=== PATIENT | female | born 1950 | race Caucasian/White ===

== ENCOUNTER 2018-03-11 05:57 | Inpatient (IN) | payer OTHER ==
[2018-02-23 17:56] VITALS: BMI 21.1
[2018-03-11] MEDS ORDERED: EPINEPHrine/PF 1 MG/1 ML (1:1,000) AMPULE ONE (06:52)
[2018-03-11] MEDS ORDERED: DEXAMETHASONE SOD PHOSPHATE/PF 10 MG/ML SDV ONE (06:52)
[2018-03-11] MEDS ORDERED: MIDAZOLAM HCL 2 MG/2 ML SINGLE DOSE VIAL ONE (06:52)
[2018-03-11] MEDS ORDERED: LIDOCAINE 1% P/F 10 MG/ML VIAL ONE (06:52)
[2018-03-11] MEDS ORDERED: BUPIVACAINE HCL/PF (5 MG/ML) 30 ML VIAL IJ ONE (06:52)
[2018-03-11] MEDS ORDERED: VANCOMYCIN 1,000 MG in DEXTROSE 5%-WATER - 250 ML IVPB ONE ×2 (07:14→20:00)
[2018-03-11] MEDS ORDERED: CELECOXIB 200 MG CAPSULE PO ONE (07:14)
[2018-03-11] MEDS ORDERED: CLINDAMYCIN 900 MG PREMIX IVPB 900 MG/50 ML BAG IVPB ONE (07:19)
[2018-03-11] MEDS ORDERED: VANCOMYCIN 1,000 MG VIAL (RESTRICTED TO ID ONLY) ONE (07:39)
[2018-03-11] MEDS ORDERED: SUCCINYLCHOLINE CHLORIDE 200 MG/10 ML VIAL ONE (08:29)
[2018-03-11] MEDS ORDERED: PROPOFOL 20 ML ONE ×3 (08:29→10:11)
[2018-03-11] MEDS ORDERED: ONDANSETRON 4 MG/2 ML VIAL ONE (08:48)
[2018-03-11] MEDS ORDERED: ceFAZolin SODIUM 1 GM VIAL ONE ×2 (08:48→11:27)
[2018-03-11] MEDS ORDERED: DEXAMETHASONE SOD PHOSPHATE 4 MG/1 ML VIAL ONE (08:48)
[2018-03-11] MEDS ORDERED: TRANEXAMIC ACID 1000 MG/10 ML VIAL ONE ×2 (08:48→12:26)
[2018-03-11] MEDS ORDERED: BENZOIN/ALOE VERA/STORAX/TOLU 58 ML BOTTLE ONE (12:13)
--- NOTE | 2018-03-11 13:00 | OP ---
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 Taoist Modular Stem - 17mm distal stem; 23mm body. Tritanium Cup - 64mm, multi-hole. Poly - 32mm, neutral. Head - Ceramic/Biolox 32mm, standard Post-Operative Diagnosis: Same as Pre-op Surgeon: Matt Vazquez [employer] Supervisor: Vicente Vazquez Anesthesiologist/BOOK JACKET COVER MACHINE OPERATOR: Sarah Martin Anesthesia: Spinal Specimens Removed: Left total hip replacement. Soft tissue Estimated Blood Loss (mls): 1,800 Drains & Tubes with Location: 1 x deep HemoVac Blood Volume Replaced (mls): 700 (2U PRBC) Fluid Volume Replaced (mls): 3,000 (Crystalloid) Operative Report Dictated: Yes
[2018-03-11] MEDS ORDERED: MAGNESIUM HYDROX 2400MG/30ML ORAL SUSPENSION 30 ML CUP PO PRN (13:02)
[2018-03-11] MEDS ORDERED: ONDANSETRON 4 MG/2 ML VIAL IVPUSH PRN (13:02)
[2018-03-11] MEDS ORDERED: MAG HYDROX/AL HYDROX/SIMETH 30 ML UNIT-DOSE CUP PO PRN (13:02)
--- NOTE | 2018-03-11 13:02 | PN ---
Progress Note (short form) - Note Progress Note: 67F s/p revision LEFT total hip replacement POD #0. -Pain control. -DVT PPx: -Mechanical: JORDY's, SCD's. -Chemical: ASA 81mg PO BID x 6 weeks. -Incentive spirometry. -PT/OT/Rehab, OOB. -WBAT LLE. -Hip abduction pillow; will obtain hip abduction brace. -f/u drain output. -d/c stephens catheter when ambulating. -f/u AM labs. -Mary Ann-op antibiotics: Ancef, Vancomycin. -Care per medical hospitalist team. -Will follow. -Discharge planning. Matt Vazquez MD (Orthopaedic Surgery).
[2018-03-11] MEDS ORDERED: oxyCODONE HCL 5 MG TABLET PO PRN (13:09)
[2018-03-11] MEDS ORDERED: LACTATED RINGERS SOLUTION 1,000 ML IV SCH (13:15)
[2018-03-11] MEDS ORDERED: ACETAMINOPHEN 325 MG TABLET (FP) PO SCH (14:00)
--- NOTE | 2018-03-11 14:19 | CONSULT ---
Consultation: REQUESTING PROVIDER: Dr Vazquez CONSULT REQUEST: We have been asked to medically evaluate this patient for medical management . HISTORY OF PRESENT ILLNESS: Patient is a 67 y/o female with a past medical history of congential bilateral hip dysplasia. patient is s/p billateral hip replacement 20 years ago. Patient is s/p left hip replacement with revision, POD #0, Dr Vazquez, spinal anesthesia. ESBL 2L, patient received 2units of PRBC intraop and 1 unit of PRBC in PACU. REVIEW OF SYSTEMS: CONSTITUTIONAL: Absent: fever, chills, diaphoresis, generalized weakness, malaise, loss of appetite, weight change HEENT: Absent: rhinorrhea, nasal congestion, throat pain, throat swelling, difficulty swallowing, mouth swelling, ear pain, eye pain, visual changes CARDIOVASCULAR: Absent: chest pain, syncope, palpitations, irregular heart rate, lightheadedness , peripheral edema RESPIRATORY: Absent: cough, shortness of breath, dyspnea with exertion, orthopnea, wheezing, stridor, hemoptysis GASTROINTESTINAL: Absent: abdominal pain, abdominal distension, nausea, vomiting, diarrhea, constipation, melena, hematochezia GENITOURINARY: Absent: dysuria, frequency, urgency, hesitancy, hematuria, flank pain, genital pain MUSCULOSKELETAL: Present: left hip pain Absent: myalgia, arthralgia, joint swelling, back pain, neck pain SKIN: Absent: rash, itching, pallor HEMATOLOGIC/IMMUNOLOGIC: Absent: easy bleeding, easy bruising, lymphadenopathy, frequent infections ENDOCRINE: Absent: unexplained weight gain, unexplained weight loss, heat intolerance, cold intolerance NEUROLOGIC: Absent: headache, focal weakness or paresthesias, dizziness, unsteady gait, seizure, mental status changes, bladder or bowel incontinence PSYCHIATRIC: Absent: anxiety, depression, suicidal or homicidal ideation, hallucinations. PHYSICAL EXAMINATION Vital Signs - 24 hr 03/11/18 03/11/18 06:11 13:00 Temperature 98.1 F 99 F Pulse Rate 65 78 Respiratory 18 16 Rate Blood Pressure 112/62 75/86 O2 Sat by Pulse 99 Oximetry (%) GENERAL: Awake, alert, and fully oriented, in no acute distress. HEAD: Normal with no signs of trauma. EYES: Pupils equal, round and reactive to light, extraocular movements intact, sclera anicteric, conjunctiva clear. No lid lag. EARS, NOSE, THROAT: Ears normal, nares patent, oropharynx clear without exudates. Moist mucous membranes. NECK: Normal range of motion, supple without lymphadenopathy, JVD, or masses. LUNGS: Breath sounds equal, clear to auscultation bilaterally. No wheezes, and no crackles. No accessory muscle use. HEART: Regular rate and rhythm, normal S1 and S2 without murmur, rub or gallop. ABDOMEN: Soft, nontender, not distended, normoactive bowel sounds, no guarding, no rebound, no masses. No hepatomegaly or splenomegaly. MUSCULOSKELETAL: Normal range of motion at all joints. No bony deformities or tenderness. No CVA tenderness. UPPER EXTREMITIES: 2+ pulses, warm, well-perfused. No cyanosis. No clubbing. Cap refill <2 seconds. No peripheral edema. LEFT LOWER EXTREMITY: hemovac drain sang drainage, less than 3 second cappila LOWER EXTREMITIES: 2+ pulses, warm, well-perfused. No calf tenderness. No peripheral edema. NEUROLOGICAL: Cranial nerves II-XII intact. Normal speech. Normal gait. PSYCHIATRIC: Cooperative. Good eye contact. Appropriate mood and affect. SKIN: Warm, dry, normal turgor, no rashes or lesions noted. Laboratory Results - last 24 hr 03/11/18 03/11/18 08:27 08:28 Blood Type O NEGATIVE Cancelled Antibody Screen Negative Crossmatch IS Only See Detail Active Medications Generic Name Dose Route Start Last Admin Trade Name Freq PRN Reason Stop Dose Admin Acetaminophen 650 mg 03/11/18 13:15 Tylenol - PO 03/14/18 13:14 Q6H FEDE Al Hydroxide/Mg Hydroxide 30 ml 03/11/18 13:02 Mylanta Oral Suspension - PO Q4H PRN DYSPEPSIA Aspirin 81 mg 03/11/18 22:00 Asa - PO BID FEDE Fentanyl 25 mcg 03/11/18 13:08 Sublimaze Injection - IVPUSH [id number] PRN PAIN-PACU ORDER X 4 DOSES ONLY Cefazolin Sodium 50 mls @ 100 mls/hr 03/11/18 18:00 Ancef 1 Gm Premixed Ivpb - IVPB 03/12/18 02:29 Q8H-IV FEDE Lactated Ringer's 1,000 mls @ 100 mls/hr 03/11/18 13:15 Lactated Ringers Solution IV 03/12/18 06:00 ASDIR FEDE Vancomycin HCl 1,000 mg/ 250 mls @ 166.667 mls/hr 03/11/18 20:00 Dextrose IVPB 03/11/18 21:29 ONCE ONE Protocol Magnesium Hydroxide 30 ml 03/11/18 13:02 Milk Of Magnesia - PO PRN PRN CONSTIPATION Ondansetron HCl 4 mg 03/11/18 13:02 Zofran Injection IVPUSH Q6H PRN NAUSEA Oxycodone HCl 5 mg 03/11/18 13:09 Roxicodone - PO Q3H PRN PAIN LEVEL 1-5 Oxycodone HCl 10 mg 03/11/18 13:09 Roxicodone - PO Q3H PRN PAIN LEVEL 6-10 Oxycodone HCl 10 mg 03/11/18 22:00 Oxycontin - PO 03/14/18 13:10 BID [facility] Pantoprazole Sodium 40 mg 03/12/18 10:00 Protonix - PO DAILY [facility] Senna/Docusate Sodium 1 tablet 03/11/18 22:00 Pericolace - PO BID FEDE ASSESSMENT/PLAN: 1) MS s/p left hip revision w/hip replacement - ESBL 2 liters, 3 units of PRBC (2intra op & 1 PACU), b/p labile, 81/53, pt reports 90's b/p baseline, pt also reports receiving 6 units of PRBC during her first hip replacement, pending INR PT/PTT, advised 4th unit of PRBC and FFP - caution with narcotic pain medication with labile B/P - PT as per ortho f/e/n - regular diet ppx - asa as per ortho - scd/jun Dispo: We will continue to follow the patient. Thank you for this consultative opportunity.
--- NOTE | 2018-03-11 14:24 | OP ---
DATE OF OPERATION: 03/11/2018 SURGEON: Matt Vazquez MD LOCKSTITCH WAISTLINE JOINER: Vicente Vazquez MD; TRINIDAD Guido PREOPERATIVE DIAGNOSIS: Loosening left total hip arthroplasty with extensive femoral and acetabular osteolysis. POSTOPERATIVE DIAGNOSIS: Loosening left total hip arthroplasty with extensive femoral and acetabular osteolysis. OPERATION PERFORMED: 1. Extended trochanteric osteotomy. 2. Explant of acetabular and femoral components. 3. Revision, left total hip arthroplasty. 4. Complex wound closure, 40 cm. ANESTHESIA: Adductor block and spinal anesthesia. ANTIBIOTICS GIVEN: Kefzol 2 g, vancomycin 1 g given preoperatively, Kefzol 1 g given at the time of seating the femoral component, and Kefzol 1 g given at the end of the procedure. DESCRIPTION: The patient was correctly identified, brought in the operating room. The left lower extremity was prepped, free draped in the routine manner with Betadine scrub solution, wiped off with alcohol, and DuraPrep applied. Left lower extremity free drape performed. Timeout was called. Imaging was available for intraoperative evaluation. In the supine position, the original old incision was opened and extended distally. The fascia was opened. Charnley retractors were placed in a subfascial plane. The hip abductor mechanism was clearly noted. Extensive caseous-type material noted laterally, eroded through the muscle into Lanza- Pabon window on through the vastus lateralis at the level of the trochanteric ridge, significant osteolysis. Once this had been cleared away, it was noted that the entire proximal anterior and distal femur had disappeared. We were looking at poor skirting from the original implant. The implant femoral component appeared to be solidly ingrown. The approach was that of an extended trochanteric osteotomy, which was as follows: Gigli saw was placed around the superior aspect of the femoral component and then cut into the plane between the shoulder of the implant and the trochanter. This was then stopped with the Gigli saw at the level of the trochanteric ridge. The vastus lateralis was dissected off the proximal femur and 2 inches of lateral femoral shaft exposed. An oscillating saw extended the cuts that had been performed from above with the Gigli saw 2 inches below the trochanteric ridge, one just alongside linea aspera and the other side just at the apex of the femur itself, and then these were together with a transverse cut as well. Using osteotome, this bone was teased off the actual bone bed appropriately, and teased off the implant. Extensive caseous-looking material was noted. Tissues were sent for culture and sensitivity as well as histopathology as well as frozen section. Frozen section was reported to have no features of any polymorph invasion of the tissues at all in any of the specimens looked at. We proceeded with the entire operation as follows. The femoral component was removed by passing another Gigli saw around the calcar region of the stem and cutting anterior and posterior aspects to break the tobias between the bone bed and the femur itself. The extraction tool was utilized and brought about an uncomplicated removal of the femoral component. At that point, the hip abductor mechanism was lifted out of harm's way with the extended trochanteric osteotomy, and 2 Charnley pins placed in the superolateral acetabulum to hold the muscle and the trochanter out of harm's way there. An anterior retractor, inferior retractor were utilized, the inferior retractor into the actual obturator foramen. The peripheral margin of the cup was free of all osteofibrous material. Extensive caseous-looking material was noted. This was freed right around the cup, and the cup was extricated without any problem. Dense caseous-looking material was noted in the cup itself. Reaming of the femur was to a size 63. The bone bed was carefully prepared. Two large holes in the bone, making this a contained defect , were then packed with cancellous bone. These were demineralized bone sponges soaked in blood, packed into this area in 2 separate areas. The acetabular component was then seated with solid press-fit being utilized. This was a Tritanium multi- holed cup size 64. The screws measured size 20 and size 30, which augmented the press -fit fixation, with solid fixation being achieved. A 32-mm polyethylene liner was inserted for the cup articulation. Once this had been performed, the femur was abducted and held firmly with the tibia vertical. The bone bed was washed, cleared of soft tissues. Reaming was started to size 17, and a size 17 yazdanism modular stem inserted. This was a size 17 x 195 stem. Onto this, the trial body was trialed. The myofascial tension was achieved by placing a size 23 body with a + 0 offset and a trial head +0 was applied to the trunnion, and this brought about equal leg length on the table. The definitive body was then placed and definitive ceramic 32, +0 head, seated onto the component and the entire hip reduced. Full range of movement found on the table with no instability. The reattachment of the trochanter was as follows: Two Dall-Miles cables were passed around the extended trochanteric osteotomy lineup of the femur and fixed solid into position with the appropriate torque and box compressing device. Another cable was placed, looped around the greater trochanter. This was not tight because of fear of breaking the bone bed but it would help as a check rein against proximal migration. Again, range of movement was tested and found to be completely solid and uncomplicated on the table. Closure: Hip abductor mechanism: 1 Vicryl; fascia: 1 Vicryl; muscle: 1 Vicryl; subcutaneous: 1 Vicryl; skin: 3-0 Monocryl with Steri-Strips. A 1/8-inch Hemovac drain was inserted. The leg lengths were equal, the axial alignment of the limb was perfectly aligned. No complications. Patient was awake throughout the procedure and remained conscious and fully orientated. Blood loss: Approximately 600 mL. Blood was given to her intraoperatively. Overall comment: Difficult problem but off went without any complications. MD HENRY Cook/[id number] MTDD
[2018-03-11 14:34] LABS: ACTIVATED PTT 30.9 SECONDS (24.0-38.9)
[2018-03-11 14:38] LABS: INR 1.16 (0.82-1.09)
[2018-03-11 16:28] LABS: MEAN CELL VOLUME 89.8 fl (80-96); PLATELET COUNT 142 K/MM3 (134-434)
[2018-03-11 16:34] LABS: HEMATOCRIT 39.9 % (32.4-45.2); HEMOGLOBIN 13.9 GM/dl (10.7-15.3); MCH 31.2 pg (25.7-33.7); MCHC 34.7 g/dl (32.0-36.0); MEAN PLT VOLUME 8.7 fl (7.5-11.1); RBC 4.44 M/mm3 (3.60-5.2); RDW 14.5 % (11.6-15.6); WHITE BLOOD COUNT 12.3 K/mm3 (4.0-10.8)
[2018-03-11] MEDS ORDERED: ACETAMINOPHEN 325 MG TABLET (FP) ONE (17:06)
[2018-03-11] MEDS ORDERED: ceFAZolin SODIUM 1 GM VIAL IVPB ONE (18:00)
[2018-03-11] MEDS: CEFAZOLIN 1 GM/D5W 1 GM/50 ML BAG IVPB SCH (18:05)
[2018-03-11] MEDS: ACETAMINOPHEN 325 MG TABLET (FP) PO SCH (18:06)
[2018-03-11] MEDS: oxyCODONE HCL 5 MG TABLET PO PRN ×2 (18:28→22:48)
[2018-03-11] MEDS ORDERED: HYDROmorphone HCL CARPU-JECT 2 MG/1 ML DISP.SYRIN IVPUSH PRN (19:50)
[2018-03-11] MEDS ORDERED: IBUPROFEN 800 MG/8 ML IJ IVPB ONE (20:00)
[2018-03-11] MEDS: ASPIRIN 325 MG TABLET PO SCH (21:11)
[2018-03-11] MEDS: oxyCODONE HCL 10 MG SUSTAINED ACTING TABLET PO SCH (21:11)
[2018-03-11] MEDS: SENNOSIDES/DOCUSATE COMBO (SENNA PLUS) TABLET (UD) PO SCH (21:12)
[2018-03-12] MEDS: CEFAZOLIN 1 GM/D5W 1 GM/50 ML BAG IVPB SCH (01:03)
[2018-03-12] MEDS: ACETAMINOPHEN 325 MG TABLET (FP) PO SCH ×3 (01:04→18:24)
[2018-03-12] MEDS: oxyCODONE HCL 5 MG TABLET PO PRN ×4 (01:45→21:19)
[2018-03-12 07:30] LABS: HEMATOCRIT 32.2 % (32.4-45.2); HEMOGLOBIN 10.8 GM/dl (10.7-15.3); MCH 30.3 pg (25.7-33.7); MCHC 33.5 g/dl (32.0-36.0); MEAN CELL VOLUME 90.6 fl (80-96); MEAN PLT VOLUME 8.8 fl (7.5-11.1); PLATELET COUNT 132 K/MM3 (134-434); RBC 3.55 M/mm3 (3.60-5.2)
[2018-03-12] MEDS ORDERED: HYDROmorphone HCL CARPU-JECT 2 MG/1 ML DISP.SYRIN IVPB PRN (07:41)
[2018-03-12 07:44] LABS: ANION GAP 3 (8-16); BLOOD UREA NITROGEN 11 mg/dl (7-18); CHLORIDE 107 mmol/L (98-107); CO2 29 mmol/L (22-28); CREATININE 0.6 mg/dl (0.6-1.3); GLUCOSE,RANDOM 91 mg/dl (74-106); POTASSIUM 3.8 mmol/L (3.5-5.1); SODIUM 139 mmol/L (136-145)
--- NOTE | 2018-03-12 07:54 | PN ---
Physical Exam: SUBJECTIVE: Patient seen and examined, ambulatoy throughout nursing station with physical therapist, denies any dizziness or shortness of breath, reports minimal pain to left hip OBJECTIVE:Patient is a 67 y/o female with a past medical history of congential bilateral hip dysplasia. patient is s/p billateral hip replacement 20 years ago. Patient is s/p left hip replacement with revision, POD # 1, Dr Vazquez, spinal anesthesia. ESBL 2L, patient received 4 units of PRBC. Vital Signs Period Temp Pulse Resp BP Sys/Ibrahim Pulse Ox Last 24 Hr 97.6 F-99 F 62-78 10-20 71-113/47-86 94-100 GENERAL: Awake, alert, and fully oriented, in no acute distress. HEAD: Normal with no signs of trauma. EYES: Pupils equal, round and reactive to light, extraocular movements intact, sclera anicteric, conjunctiva clear. No lid lag. EARS, NOSE, THROAT: Ears normal, nares patent, oropharynx clear without exudates. Moist mucous membranes. NECK: Normal range of motion, supple without lymphadenopathy, JVD, or masses. LUNGS: Breath sounds equal, clear to auscultation bilaterally. No wheezes, and no crackles. No accessory muscle use. HEART: Regular rate and rhythm, normal S1 and S2 without murmur, rub or gallop. ABDOMEN: Soft, nontender, not distended, normoactive bowel sounds, no guarding, no rebound, no masses. No hepatomegaly or splenomegaly. MUSCULOSKELETAL: Normal range of motion at all joints. No bony deformities or tenderness. No CVA tenderness. UPPER EXTREMITIES: 2+ pulses, warm, well-perfused. No cyanosis. No clubbing. Cap refill <2 seconds. No peripheral edema. LEFT LOWER EXTREMITY: hemovac drain sang drainage, less than 3 second cappila LOWER EXTREMITIES: 2+ pulses, warm, well-perfused. No calf tenderness. No peripheral edema. NEUROLOGICAL: Cranial nerves II-XII intact. Normal speech. Normal gait. PSYCHIATRIC: Cooperative. Good eye contact. Appropriate mood and affect. SKIN: Warm, dry, normal turgor, no rashes or lesions noted. Laboratory Results - last 24 hr 03/11/18 03/11/18 03/11/18 08:27 08:28 13:50 WBC RBC Hgb Hct MCV MCH MCHC RDW Plt Count MPV PT with INR 13.0 INR 1.16 PTT (Actin FS) 30.9 Blood Type O NEGATIVE Cancelled Antibody Screen Negative Crossmatch IS Only See Detail 03/11/18 16:00 WBC 12.3 H RBC 4.44 Hgb 13.9 Hct 39.9 MCV 89.8 MCH 31.2 MCHC 34.7 RDW 14.5 Plt Count 142 MPV 8.7 PT with INR INR PTT (Actin FS) Blood Type Antibody Screen Crossmatch IS Only CBC WBC 13.0 K/mm3 (4.0-10.8) H 03/12/18 07:11 RBC 3.55 M/mm3 (3.60-5.2) L D 03/12/18 07:11 Hgb 10.8 GM/dl (10.7-15.3) D 03/12/18 07:11 Hct 32.2 % (32.4-45.2) L D 03/12/18 07:11 MCV 90.6 fl (80-96) 03/12/18 07:11 MCH 30.3 pg (25.7-33.7) 03/12/18 07:11 MCHC 33.5 g/dl (32.0-36.0) 03/12/18 07:11 RDW 15.0 % (11.6-15.6) 03/12/18 07:11 Plt Count 132 K/MM3 (134-434) L 03/12/18 07:11 MPV 8.8 fl (7.5-11.1) 03/12/18 07:11 Active Medications Generic Name Dose Route Start Last Admin Trade Name Vic PRN Reason Stop Dose Admin Acetaminophen 650 mg 03/11/18 18:00 03/12/18 06:13 Tylenol - PO 03/14/18 17:59 650 mg Q6H FEDE Administration Al Hydroxide/Mg Hydroxide 30 ml 03/11/18 13:02 Mylanta Oral Suspension - PO Q4H PRN DYSPEPSIA Aspirin 81 mg 03/11/18 22:00 03/11/18 21:11 Asa - PO 81 mg BID FEDE Administration Fentanyl 25 mcg 03/11/18 13:08 Sublimaze Injection - IVPUSH [id number] PRN PAIN-PACU ORDER X 4 DOSES ONLY Hydromorphone HCl 0.5 mg 03/12/18 07:41 Dilaudid Injection - IVPB 03/12/18 19:49 Q4H PRN PAIN LEVEL 7 - 10 Magnesium Hydroxide 30 ml 03/11/18 13:02 Milk Of Magnesia - PO PRN PRN CONSTIPATION Ondansetron HCl 4 mg 03/11/18 13:02 Zofran Injection IVPUSH Q6H PRN NAUSEA Oxycodone HCl 5 mg 03/11/18 13:09 03/12/18 04:55 Roxicodone - PO 5 mg Q3H PRN Administration PAIN LEVEL 1-5 Oxycodone HCl 10 mg 03/11/18 13:09 03/12/18 01:45 Roxicodone - PO 10 mg Q3H PRN Administration PAIN LEVEL 6-10 Oxycodone HCl 10 mg 03/11/18 22:00 03/11/18 21:11 Oxycontin - PO 03/14/18 13:10 10 mg BID FEDE Administration Pantoprazole Sodium 40 mg 03/12/18 10:00 Protonix - PO DAILY FEDE Senna/Docusate Sodium 1 tablet 03/11/18 22:00 03/11/18 21:12 Pericolace - PO 1 tablet BID FEDE Administration ASSESSMENT/PLAN: 1) MS s/p left hip revision w/hip replacement, pod #1 - 4units of prbc, hgb 10.8 stable - b/p at baseline - prn pain medication - PT as per ortho f/e/n - regular diet ppx - asa as per ortho - scd/jun Dispo: We will continue to follow the patient. Thank you for this consultative opportunity.
--- NOTE | 2018-03-12 09:39 | PN ---
Progress Note (short form) - Note Progress Note: 67F POD1 s/p L revision THR under spinal anesthetic and peripheral nerve blocks. Pt states that pain is well contolled, reports no anesthetic complications. After 4 units pRbcs and 4L crystalloid, pt is not orthostatic, and BP is close to/at baseline. Motor and sensory function intact in bilateral lower extremities. Continue current regimen.
[2018-03-12] MEDS: PANTOPRAZOLE 40 MG TABLET (FP) PO SCH (10:32)
[2018-03-12] MEDS: oxyCODONE HCL 10 MG SUSTAINED ACTING TABLET PO SCH ×2 (10:32→21:20)
[2018-03-12] MEDS: SENNOSIDES/DOCUSATE COMBO (SENNA PLUS) TABLET (UD) PO SCH ×2 (10:32→21:20)
[2018-03-12] MEDS: ASPIRIN 325 MG TABLET PO SCH ×2 (10:33→21:21)
[2018-03-12] MEDS ORDERED: ASPIRIN 81 MG CHEWABLE TABLETS ONE (21:03)
[2018-03-12] MEDS ORDERED: diazePAM 5 MG TABLET PO ONE (22:00)
[2018-03-13] MEDS: ACETAMINOPHEN 325 MG TABLET (FP) PO SCH ×4 (05:55→12:24)
[2018-03-13] MEDS: oxyCODONE HCL 5 MG TABLET PO PRN ×2 (06:13→10:04)
[2018-03-13 06:29] VITALS: PULSE 94
[2018-03-13 08:13] LABS: HEMATOCRIT 30.3 % (32.4-45.2); HEMOGLOBIN 10.3 GM/dl (10.7-15.3); MCH 30.4 pg (25.7-33.7); MCHC 34.1 g/dl (32.0-36.0); MEAN CELL VOLUME 89.3 fl (80-96); MEAN PLT VOLUME 9.3 fl (7.5-11.1); PLATELET COUNT 140 K/MM3 (134-434); RBC 3.39 M/mm3 (3.60-5.2); RDW 15.2 % (11.6-15.6); WHITE BLOOD COUNT 10.5 K/mm3 (4.0-10.8)
--- NOTE | 2018-03-13 09:32 | DS ---
Physical Exam: SUBJECTIVE: Patient seen and examined, patient ambulated throughout nursing station with physical therapist, denies any chest pain, dizziness or shortness of breath, patient denies any paresthesia to the left lower extremity. OBJECTIVE: Patient is a 67 y/o female with a past medical history of congential bilateral hip dysplasia. patient is s/p billateral hip replacement 20 years ago. Patient is s/p left hip replacement with revision, POD #2, Dr Vazquez. Vital Signs Temperature 99.2 F 03/13/18 06:00 Pulse Rate 94 H 03/13/18 06:00 Respiratory Rate 17 03/13/18 06:00 Blood Pressure 100/49 03/13/18 06:00 O2 Sat by Pulse Oximetry (%) 95 03/13/18 06:27 Vital Signs - 24 hr 03/12/18 03/12/18 03/12/18 14:00 20:06 22:00 Temperature 98.2 F 98 F Pulse Rate 69 70 Respiratory 18 18 18 Rate Blood Pressure 100/48 118/54 O2 Sat by Pulse 97 97 Oximetry (%) 03/13/18 03/13/18 03/13/18 06:00 06:27 09:00 Temperature 99.2 F Pulse Rate 94 H Respiratory 17 17 Rate Blood Pressure 100/49 O2 Sat by Pulse 95 95 Oximetry (%) 03/13/18 10:00 Temperature 99.2 F Pulse Rate 94 H Respiratory 17 Rate Blood Pressure 100/49 O2 Sat by Pulse Oximetry (%) PHYSICAL EXAM GENERAL: The patient is awake, alert, and fully oriented, in no acute distress. HEAD: Normal with no signs of trauma. EYES: PERRL, extraocular movements intact, sclera anicteric, conjunctiva clear. ENT: Ears normal, nares patent, oropharynx clear without exudates, moist mucous membranes. NECK: Trachea midline, full range of motion, supple. LUNGS: Breath sounds equal, clear to auscultation bilaterally, no wheezes, no crackles, no accessory muscle use. HEART: Regular rate and rhythm, S1, S2 without murmur, rub or gallop. ABDOMEN: Soft, nontender, nondistended, normoactive bowel sounds, no guarding, no rebound, no hepatosplenomegaly, no masses. EXTREMITIES: 2+ pulses, warm, well-perfused, no edema. LEFT LOWER EXTREMITY: surgical dressing intact, hemovac dressing removed intact , no induration noted, minimal drainage noted, less than 3 second capillary refill, +3 pedal pulse NEUROLOGICAL: Cranial nerves II through XII grossly intact. Normal speech, gait not observed. PSYCH: Normal mood, normal affect. SKIN: Warm, dry, normal turgor, no rashes or lesions noted. LABS CBC,CMP WBC 10.5 K/mm3 (4.0-10.8) 03/13/18 07:15 RBC 3.39 M/mm3 (3.60-5.2) L 03/13/18 07:15 Hgb 10.3 GM/dl (10.7-15.3) L 03/13/18 07:15 Hct 30.3 % (32.4-45.2) L 03/13/18 07:15 MCV 89.3 fl (80-96) 03/13/18 07:15 MCH 30.4 pg (25.7-33.7) 03/13/18 07:15 MCHC 34.1 g/dl (32.0-36.0) 03/13/18 07:15 RDW 15.2 % (11.6-15.6) 03/13/18 07:15 Plt Count 140 K/MM3 (134-434) 03/13/18 07:15 MPV 9.3 fl (7.5-11.1) 03/13/18 07:15 Sodium 139 mmol/L (136-145) 03/12/18 07:11 Potassium 3.8 mmol/L (3.5-5.1) 03/12/18 07:11 Chloride 107 mmol/L (98-107) 03/12/18 07:11 Carbon Dioxide 29 mmol/L (22-28) H 03/12/18 07:11 Anion Gap 3 (8-16) L 03/12/18 07:11 BUN 11 mg/dl (7-18) 03/12/18 07:11 Creatinine 0.6 mg/dl (0.6-1.3) 03/12/18 07:11 Random Glucose 91 mg/dl (74-106) 03/12/18 07:11 Calcium 8.0 mg/dl (8.4-10.2) L 03/12/18 07:11 HOSPITAL COURSE: The patient was admitted to the Med-Surg Unit after a left total hip replacment with revision, Dr Vazquez, spinal anesthesia. On post op day 1, the patient ambulated the hallways with assistance. Narcotic and non-narcotic pain management control was achieved with an oral and IV approach. POD # 2, the surgical drain was removed fully intact and without incident. Mary Ann-operative IV ABX were administered. ESBL 2L, patient received 4 units of PRBC. Repeat hgb 10.3 on post op day 2. DVT prophylaxis was achieved with SCDs and early ambulation. The patient ambulated with Physical Therapy and no services were recommended upon discharge. The discharge instructions and an oral pain management plan were reviewed with the patient. All questions answered. Above plan discussed with Dr. Vazquez and agreed. Date of Admission:03/11/18 Date of Discharge: 03/13/18
[2018-03-13] MEDS: oxyCODONE HCL 10 MG SUSTAINED ACTING TABLET PO ONE ×2 (10:04→10:05)
[2018-03-13] MEDS: PANTOPRAZOLE 40 MG TABLET (FP) PO SCH (10:04)
[2018-03-13] MEDS: ASPIRIN 325 MG TABLET PO SCH (10:04)
[2018-03-13] MEDS: SENNOSIDES/DOCUSATE COMBO (SENNA PLUS) TABLET (UD) PO SCH (10:04)
[2018-03-13] MEDS: oxyCODONE HCL 10 MG SUSTAINED ACTING TABLET PO SCH (10:06)
[2018-03-13 13:21] VITALS: BP 104/74; TEMP 98.8
--- NOTE | 2018-03-16 15:19 | PATH ---
Surgical Pathology Report Patient Name: DEVEN TONY Med. Rec. #: [id number] /Age/Gender: 1950 (Age: 67) / F Account: [id number] Location: [facility] Taken: 03/11/2018 Received: 03/11/2018 Reported: 03/16/2018 Physicians: Matt Vazquez M.D. Specimen(s) Received A: LEFT HIP CAPSULE B: LEFT HIP TROCHANTERIC BONE BED C: LEFT HIP CAPSULE D: LEFT HIP EXPLANTS Clinical History Loose left total hip, osteolysis Intraoperative Consult Diagnosis Soft tissue and bone, hip, left for frozen section: Dense fibroconnective tissue and synovium with histiocytic proliferation compatible with osteolysis on cash application representative sections. Luci Juarez M.D., 03/11/18 Final Diagnosis A. Hip, SOFT TISSUE AND BONE, left, revision total hip arthroplasty(FS): Dense fibroconnective tissue and synovium with histiocytic proliferation and areas of necrosis compatible with OSTEOLYSIS. Fragments of fibroadipose tissue, SCANT bone, and skeletal muscle present. B. Hip, trochanteric BONE bed, left, revision total hip arthroplasty: Dense fibroconnective tissue and synovium with histiocytic proliferation, foreign body giant cell reaction WITH associated foreign body material, AND areas of necrosis, compatible with OSTEOLYSIS. Fragments of fibroadipose tissue. C. Hip capsule, left, revision total hip arthroplasty: BONE, Dense fibroconnective tissue, synovium with histiocytic proliferation, foreign body giant cell reaction WITH associated foreign body material AND areas of necrosis, compatible with OSTEOLYSIS. D. Hardware/implant, HIP, left, explantation: Surgical hardware mAcroscopic diagnosis. Electronically Signed Steffany Whatley M.D. Gross Description A. Received fresh labeled "left hip" is a 6.0 x 5.0 x 1.0 cm aggregate of dense fibroconnective tissue, synovium and bone. A cash application representative portion is submitted for frozen section. The frozen section residue is entirely submitted in one cassette. B. Received in formalin labeled "left hip trochanteric bone bed," is a 5.5 x 5.0 x 1.5 cm aggregate of dense fibroconnective and synovial tissue. Hearing [employer] sections are submitted in 2 cassettes. C. Received in formalin labeled "left hip capsule," is an 8.5 x 7.5 x 2.6 cm aggregate of dense fibroconnective tissue, synovium and bone. Hearing Dog Trainer sections are submitted in 3 cassettes, with cassette 3 following decalcification. D. Received fresh labeled "left hip explant," are 2 portions of garcia metallic hardware measuring 5.2 and 18.0 cm in greatest dimension, consistent with a hip prosthesis. No soft tissue is present. No sections are submitted, gross only. 03/11/2018 [facility]03/11/2018
== END 2018-03-13 16:02 | DRG 468 ==
LOC: FM/S 05:57
PROVIDERS: ADMIT Orthopaedic Surgery Orthopaedic Surgery of the Spine; ATTEND Orthopaedic Surgery Orthopaedic Surgery of the Spine
PROC: 0SRB02Z Replacement of Left Hip Joint with Metal on Polyethylene Synthetic Substitute, Open Approach (ICD-10-PCS; 2018-03-11)
PROC: 30233N1 Transfusion of Nonautologous Red Blood Cells into Peripheral Vein, Percutaneous Approach (ICD-10-PCS; 2018-03-11)
PROC: 0SPB0JZ Removal of Synthetic Substitute from Left Hip Joint, Open Approach (ICD-10-PCS; principal; 2018-03-11 08:00)
DX: T84.031A Mechanical loosening of internal left hip prosthetic joint, initial encounter (principal); Y83.8 Other surgical procedures as the cause of abnormal reaction of the patient, or of later complication, without mention of misadventure at the time of the procedure; Q65.89 Other specified congenital deformities of hip; I10 Essential (primary) hypertension; Z96.643 Presence of artificial hip joint, bilateral
CPT/HCPCS: 36415; 36430; 73502-TC-LT-FY; 73523-TC-FY; 80048; 85027; 85610; 85730; 86850; 86900; 86901; 86922; 88300-TC; 88305-TC; 88311-TC; 88331-TC; 97116-GP; 97161-GP; P9038; P9058